=== PATIENT | male | born 1955 | race Two or more races ===

== ENCOUNTER 2017-01-10 12:43 | Emergency (ER) | payer SELFPAY ==
[~2017-01-10] VITALS: Ht 172.7 cm; Wt 90.7 kg
[2017-01-10 12:44] VITALS: BP 144/95
[2017-01-10] MEDS ORDERED: LORazepam Inj 2mg/ml 1ml IV ONE (13:15)
[2017-01-10 13:29] LABS: BASOPHILS % (AUTO) 1.7 % (0.0-2.0); EOSINOPHILS % (AUTO) 1.3 % (0.0-3.0); LYMPHOCYTES % (AUTO) 18.9 % (20.0-45.0); MEAN CORPUSCULAR HEMOGLOBIN 27.3 PG (27.0-31.0); MEAN CORPUSCULAR HGB CONC 32.6 G/DL (32.0-36.0); MEAN CORPUSCULAR VOLUME 84 FL (80-99); MEAN PLATELET VOLUME 4.8 FL (6.5-10.1); MONOCYTES % (AUTO) 8.8 % (1.0-10.0); NEUTROPHILS % (AUTO) 69.4 % (45.0-75.0); PLATELET COUNT 216 K/UL (150-450); RED BLOOD COUNT 5.09 M/UL (4.70-6.10); RED CELL DISTRIBUTION WIDTH 14.2 % (11.6-14.8); WHITE BLOOD COUNT 7.3 K/UL (4.8-10.8)
[2017-01-10 13:39] LABS: ALANINE AMINOTRANSFERASE 10 U/L (3-41); ALBUMIN/GLOBULIN RATIO 0.6 (1.0-2.7); ANION GAP 18 (5-15); ASPARTATE AMINO TRANSFERASE 24 U/L (5-40); CALCIUM 8.5 mg/dL (8.6-10.2); CARBON DIOXIDE 27 mEQ/L (20-30); CHLORIDE 97 mEQ/L (98-107); CREATININE 0.6 mg/dL (0.7-1.2); GLOMERULAR FILTRATION RATE > 60 mL/min (>60); HEMOLYSIS 28; LIPASE 23 U/L (< 60); POTASSIUM 3.8 mEQ/L (3.4-4.9); PROTHROMBIN TIME 9.9 SEC (9.30-11.50); SODIUM 142 mEQ/L (135-145); TOTAL PROTEIN 7.6 g/dL (6.6-8.7); TROPONIN I < 0.30 ng/mL (<=0.30)
[2017-01-10 13:50] LABS: CKMB 2.1 ng/mL (< 6.7)
[2017-01-10] MEDS ORDERED: PEPCID40 MG PO (14:21)
--- NOTE | 2017-01-10 14:26 | Emergency Room Report ---
History of Present Illness General Chief Complaint: Alcohol Intoxication Source: Patient, Family Member, EMS (DRU MIXON D.O.) Present Illness HPI Patient presents with complaints of generally not feeling well and feeling fatigued Patient's son who checks on him reports that he has been slowly decompensating patient is homeless and an alcoholic Patient complain of some epigastric discomfort denies any vomiting or diarrhea denies any chest pain or shortness of breath Patient also has a inguinal hernia which has given him discomfort over the past several years Denies any fevers or chills denies any dysuria frequency (DRU MIXON D.O.) Allergies: Coded Allergies: No Known Allergies (Unverified , 01/10/17) Patient History Past Medical History: see triage record Pertinent Family History: none Reviewed Nursing Documentation: PMH: Agreed, PSxH: Agreed (DRU MIXON D.O.) Nursing Documentation-PMH Past Medical History: No History, Except For Hx Cardiac Problems: Yes - High cholesterol Hx Diabetes: Yes (DRU MIXON D.O.) Review of Systems All Other Systems: negative except mentioned in HPI (DRU MIXON D.O.) Physical Exam Vital Signs Date Time Temp Pulse Resp B/P Pulse Ox O2 Delivery O2 Flow Rate FiO2 01/10/17 12:34 98.2 114 01/10/17 12:34 18 148/97 99 Room Air 99 Sp02 EP Interpretation: reviewed, normal General Appearance: no apparent distress - Upper mildly disheveled Head: normocephalic, atraumatic Eyes: bilateral eye EOMI, bilateral eye PERRL ENT: normal pharynx, no angioedema Neck: full range of motion, supple Respiratory: lungs clear Cardiovascular #1: regular rate, rhythm Gastrointestinal: other - Large inguinal hernia otherwise nontender Genitourinary: no CVA tenderness Musculoskeletal: normal inspection Neurologic: alert, oriented x3, responsive Skin: no rash - However appears disheveled Lymphatic: no adenopathy (DRU MIXON D.O.) Medical Decision Making Diagnostic Impression: Primary Impression: inguinal hernia Additional Impression: alcohol abuse ER Course Multiple differentials including but not limited to, sepsis, alcohol withdrawal , GI bleed hepatitis are considered Patient had extensive blood work initiated appears to be appropriate levels Patient's alcohol level is also elevated Patient rested comfortably through the ER Patient is also hungry and asking for food, does not appear to be any signs of nausea or vomiting We did have social work available and she was contacted for assistance in providing further outpatient resources Patient and the family are happy regarding this and will have close outpatient followup , Labs Test 01/10/17 13:13 White Blood Count 7.3 K/UL (4.8-10.8) Red Blood Count 5.09 M/UL (4.70-6.10) Hemoglobin 13.9 G/DL (14.2-18.0) Hematocrit 42.6 % (42.0-52.0) Mean Corpuscular Volume 84 FL (80-99) Mean Corpuscular Hemoglobin 27.3 PG (27.0-31.0) Mean Corpuscular Hemoglobin Concent 32.6 G/DL (32.0-36.0) Red Cell Distribution Width 14.2 % (11.6-14.8) Platelet Count 216 K/UL (150-450) Mean Platelet Volume 4.8 FL (6.5-10.1) Neutrophils (%) (Auto) 69.4 % (45.0-75.0) Lymphocytes (%) (Auto) 18.9 % (20.0-45.0) Monocytes (%) (Auto) 8.8 % (1.0-10.0) Eosinophils (%) (Auto) 1.3 % (0.0-3.0) Basophils (%) (Auto) 1.7 % (0.0-2.0) Prothrombin Time 9.9 SEC (9.30-11.50) Prothromb Time International Ratio 1.0 (0.9-1.1) Activated Partial Thromboplast Time 28 SEC (23-33) Sodium Level 142 mEQ/L (135-145) Potassium Level 3.8 mEQ/L (3.4-4.9) Chloride Level 97 mEQ/L (98-107) Carbon Dioxide Level 27 mEQ/L (20-30) Anion Gap 18 (5-15) Blood Urea Nitrogen 5 mg/dL (7-23) Creatinine 0.6 mg/dL (0.7-1.2) Estimat Glomerular Filtration Rate > 60 mL/min (>60) Glucose Level 255 mg/dL (74-106) Calcium Level 8.5 mg/dL (8.6-10.2) Total Bilirubin 0.3 mg/dL (0.0-1.2) Aspartate Amino Transf (AST/SGOT) 24 U/L (5-40) Alanine Aminotransferase (ALT/SGPT) 10 U/L (3-41) Alkaline Phosphatase 95 U/L (40-129) Total Creatine Kinase 64 U/L (38-174) Creatine Kinase MB 2.1 ng/mL (< 6.7) Creatine Kinase MB Relative Index 3.2 Troponin I < 0.30 ng/mL (<=0.30) Pro-B-Type Natriuretic Peptide 15 pg/mL (0-125) Total Protein 7.6 g/dL (6.6-8.7) Albumin 3.0 g/dL (3.5-5.2) Globulin 4.6 g/dL Albumin/Globulin Ratio 0.6 (1.0-2.7) Lipase 23 U/L (< 60) Serum Alcohol 315 mg/dL (DRU MIXON D.O.) ER Course UA still pending at time of DC Patient did not want to wait for results Saw SW in ED, provided list of housing options (LANI RODRIGUEZ M.D.) Rhythm Strip Diag. Results EP Interpretation: yes Rate: 77 Rhythm: NSR, no PVC's, no ectopy (DRU [email or web address].[email or web address]) Chest X-Ray Diagnostic Results EP Interpretation: Yes Findings: no consolidation, no effusion, no pneumothorax Number of Views: 1 (DRU [email or web address].Tosha.) Last Vital Signs Date Time Temp Pulse Resp B/P Pulse Ox O2 Delivery O2 Flow Rate FiO2 01/10/17 12:44 98.1 107 18 144/95 99 Room Air 99 Status: improved (DRU MIXON.O.) Status: improved (LANI RODRIGUEZ M.D.) Disposition: HOME, SELF-CARE Condition: Improved Scripts Famotidine (PEPCID) 40 Mg Tablet 40 MG PO DAILY, #14 TAB 0 Refills Prov: DRU MIXON.Tosha. 01/10/17 Patient Instructions: Inguinal Hernia, Adult, [id number], Alcohol Abuse and Nutrition Additional Instructions: Patient is provided with the discharge instructions notified to follow up with primary doctor in the next 2-3 days otherwise return to the er with any worsening symptoms. Please note that this report is being documented using DRAGON technology. This can lead to erroneous entry secondary to incorrect interpretation by the dictating instrument. DRU MIXON D.O. January 10, 2017 14:26 LANI RODRIGUEZ M.D. January 10, 2017 15:22
[2017-01-10 15:13] VITALS: BP 139/93
[2017-01-10 15:14] VITALS: BP 144/95
--- NOTE | 2017-01-13 07:57 | Cardiology Report ---
APPROVED REPORT EKG Measurement Heart [id number] Sinus tachycardia Inferior infarct, age undetermined Abnormal ECG
--- NOTE | 2017-01-13 09:18 | Diagnostic Imaging Report ---
Indication: Dyspnea Comparison: None A single view chest radiograph was obtained. Findings: Cardiomediastinal appearance is within normal limits for age. Pulmonary vascularity is appropriate. The diaphragmatic contour is smooth and costophrenic angles are sharp. No pleural effusions are identified. The bones are osteopenic. Impression: No acute findings
== END 2017-01-10 15:15 | disposition home or self-care (01) ==
LOC: EDBD 12:43 → EMR 13:00
DX: K40.90 Unilateral inguinal hernia, without obstruction or gangrene, not specified as recurrent (principal); F10.10 Alcohol abuse, uncomplicated; E11.9 Type 2 diabetes mellitus without complications
CPT/HCPCS: 36415; 71010; 80053; 82550; 82553; 83690; 83880; 84484; 85025; 85610; 85730; 93005; 96360; 96374; 99284; G0480; J7040; 80329